=== PATIENT | male | born 1965 | race Two or more races ===

== ENCOUNTER 2019-05-01 19:30 | Emergency (ER) | payer MEDICAID ==
[~2019-05-01] VITALS: Ht 175.3 cm; Wt 102.0 kg
[2019-05-01] MEDS ORDERED: KETOROLAC 60MG/2ML VIAL IM ONE (20:30)
[2019-05-01] MEDS ORDERED: HYDROCODONE/ACETAMINOPHEN 5/325MG TABLET PO ONE (21:30)
[2019-05-01 22:30] VITALS: BP 114/71
== END 2019-05-02 01:16 | disposition home or self-care (01) ==
LOC: ER 19:30
DX: S92.245A Nondisplaced fracture of medial cuneiform of left foot, initial encounter for closed fracture (principal); F17.210 Nicotine dependence, cigarettes, uncomplicated; F12.10 Cannabis abuse, uncomplicated; Z98.890 Other specified postprocedural states; W22.8XXA Striking against or struck by other objects, initial encounter; Y93.89 Activity, other specified; Y92.89 Other specified places as the place of occurrence of the external cause
CPT/HCPCS: 29515; 73110; 73630; 96372; 99283; J1885